=== PATIENT | male | born 1955 | race Caucasian/White ===

== ENCOUNTER 2017-12-08 10:38 | Emergency (ER) | payer OTHER ==
[2017-12-08 10:46] VITALS: BP 124/81; PULSE 83; TEMP 98.3; BMI 26.6
--- NOTE | 2017-12-08 10:57 | PDOC ---
Attending Attestation - Resident Resident Name: Trena Ugalde - ED Attending Attestation I have performed the following: I have examined & evaluated the patient, The case was reviewed & discussed with the resident, I agree w/resident's findings & plan, Exceptions are as noted - HPI HPI: 12/08/17 13:25 Left lower quadrant pain progressively worsening over the past 5 days. Started himself on Bactrim and Flagyl, this being day 3 of antibiotics, with worsening of his pain. One episode of diverticulitis in September [address] but no abscess, treated with outpatient antibiotics and resolved completely. Contacted his primary physician, who did not see the patient but started the antibiotic therapy. Mild nausea, no vomiting, normal bowel movements. Last bowel movement this morning. No fever/chills. No urinary tract symptoms. No hematemesis melena or bloody stool. - Physicial Exam PE: 12/08/17 13:27 Physical exam is normal except for significant left lower quadrant tenderness to moderate palpation with guarding in the suggestion of rebound. - Medical Decision Making 12/08/17 13:28 Assessment: Most likely a flareup of diverticulitis, seems to be worsening despite appropriate outpatient treatment with antibiotics. Plan: CBC and chemistries, repeat imaging to rule out perforation or abscess. Patient declines analgesics or antiemetics at present. 12/08/17 16:35 White blood count is normal. Remainder of CBC and chemistries also without significant abnormalities CT of the abdomen and pelvis reveals no evidence of acute disease. Specifically , no evidence of diverticulitis. A subacute episode however is possible, as well as viral gastroenteritis/colitis is possible etiology. Continue current antibiotic regimen and follow-up with GI specialist as soon as possible. If unable to get appointment with his GI specialist, he is referred to one of our staff for follow-up. Fully ambulatory and in no significant pain upon discharge with his to follow-up as directed. Specifically urged to return immediately if he develops fever, increased pain, protracted vomiting and inability to take in oral food or fluids.
[2017-12-08 12:54] LABS: URINE APPEARANCE Clear; URINE BILIRUBIN Negative (NEGATIVE); URINE COLOR Yellow; URINE GLUCOSE (UA) Negative (NEGATIVE); URINE KETONE Negative (NEGATIVE); URINE LEUK ESTERASE Negative (NEGATIVE); URINE NITRITE Negative (NEGATIVE); URINE PROTEIN Negative (NEGATIVE); URINE UROBILINOGEN 0.2 (0.2-1.0)
--- NOTE | 2017-12-08 13:02 | PDOC ---
History of Present Illness - General Chief Complaint: Pain Stated Complaint: LLQ ABD PAIN Time Seen by Provider: 12/08/17 11:50 - History of Present Illness Initial Comments: 62yo M with PMH of diverticulitis presenting with LLQ. This pain started about three or four days ago. The pain is presenting constantly at baseline, with intermittent severity, rated 8/10 at its worst. The pain is consistent with that of a previous episode of diverticulitis on 10/23/17 for which the patient came to this ED and was discharged with bactrim and flagyl. Patient called his primary care physician, Dr. Branham, who sent an e-prescription for the same medicines three days ago. Patient now on day three of antibiotics. Patient has also felt intermittent nausea, but has not vomited. Last bowel movement was this morning and was a normal formed brown stool without the presence of blood. No history of abdominal surgeries. Patient denies fever, chills, chest pain, or shortness of breath. Past History - Past Medical History Allergies/Adverse Reactions: Allergies Allergy/AdvReac Type Severity Reaction Status Date / Time Penicillins Allergy Verified 12/08/17 10:39 Home Medications: Ambulatory Orders Sulfamethoxazole/Trimethoprim [Bactrim DS -] 1 tab PO BID #20 tablet 10/23/17 metroNIDAZOLE [Flagyl -] 500 mg PO TID #30 tablet 10/23/17 COPD: No CHF: No GI Disorders: Yes (DIVERTICULITIS) - Suicide/Smoking/Psychosocial Hx Smoking History: Unknown if ever smoked Have you smoked in the past 12 months: No Number of Cigarettes Smoked Daily: 0 Information on smoking cessation initiated: No Hx Alcohol Use: No Drug/Substance Use Hx: No Substance Use Type: None Review of Systems - Review of Systems Comments:: Constitutional: no fever, no chills HEENT: no throat pain, no dysphagia Cardiovascular: no chest pain, no palpitations Respiratory: no cough, no shortness of breath Gastrointestinal: +abdominal pain, +nausea, no vomiting, no diarrhea, no constipation Genitourinary: no dysuria, no frequency Musculoskeletal: no myalgia, no arthralgia Skin: no rash, no itching Neurologic: no headache, no dizziness *Physical Exam - Vital Signs Last Vital Signs Temp Pulse Resp BP Pulse Ox 98.3 F 83 20 124/81 100 12/08/17 10:39 12/08/17 10:39 12/08/17 10:39 12/08/17 10:39 12/08/17 10:39 - Physical Exam Comments: General: Awake, alert, and fully oriented, in no acute distress Head: no signs of trauma Eyes: EOMI, sclera anicteric ENT: Moist mucus membranes Neck: Normal ROM, supple Lungs: Lungs clear, Normal breath sounds Cardio: Regular rhythm, S1 and S2 present Abdomen: Tender to palpation in LLQ. No guarding, no rebound, no masses Rectal: The skin is without erythema or induration. No external hemorrhoids, fissures, skin tags, warts, or discharge. Sphincter tone normal. There are no masses palpated on digital exam. Extremities: Normal range of motion, Distal pulses present SKIN: Warm, Dry, normal turgor Neurologic: Cranial nerves II through XII grossly intact. Normal speech ED Treatment Course - LABORATORY CBC & Chemistry Diagram: 12/08/17 13:00 12/08/17 13:00 - ADDITIONAL ORDERS Additional order review: Laboratory Results 12/08/17 12:44 Urine Color Yellow Urine Appearance Clear Urine pH 7.0 D Ur Specific Corbett 1.020 Urine Protein Negative Urine Glucose (UA) Negative Urine Ketones Negative Urine Blood Negative Urine Nitrite Negative Urine Bilirubin Negative Urine Urobilinogen 0.2 Ur Leukocyte Esterase Negative Medical Decision Making - Medical Decision Making 62yo M with PMH of diverticulitis presenting with LLQ. -DDX includes but not limited to diverticulitis, kidney stone, urinary tract infection, pyelonephritis, pancreatitis, colitis, gastroenteritis -Labs: no leukocytosis or anemia, lipase negative, FOBT, negative, UA negative - Patient deferred pain medication at this time -CT: without acute pathology, and even shows: in comparison to a prior CT study of 10/23/2017 note is made of interval resolution of acute uncomplicated sigmoid diverticulitis -Though WBC and CT normal, instructed patient to continue with prescription for bactrim and flagyl and follow-up with PCP -Referral to GI *DC/Admit/Observation/Transfer Diagnosis at time of Disposition: Abdominal pain - Discharge Dispostion Disposition: HOME Condition at time of disposition: Stable - Referrals Referrals: Nico Alexandre MD [Staff Physician] - Edi Larios MD [Non Staff, Medical] - - Patient Instructions Printed Discharge Instructions: DI for Abdominal Pain-Adult Additional Instructions: You came to the ED for abdominal pain. Continue the course of antibiotics (Trimethoprim-Sulfamethoxazole and Metronidazole) that your doctor already prescribed. Follow up with your primary care physician in 2-3 days. We have referred you to a gastrointestinal physician, Dr. Alexandre. Call and make an appointment at the number provided. RETURN if: you develo high fevers, severe pain, constipation, intractable vomiting, are unable to take your antibiotics, or develop any new or concerning symptoms. - Post Discharge Activity
[2017-12-08 13:27] LABS: BASO % 0.2 % (0-2.0); EOS % 4.1 % (0-4.5); HEMATOCRIT 41.1 % (35.4-49); HEMOGLOBIN 13.7 GM/dl (11.7-16.9); LYMPH % 21.5 % (8-40); MCH 31.3 pg (25.7-33.7); MCHC 33.4 g/dl (32.0-35.9); MEAN CELL VOLUME 93.5 fl (80-96); MEAN PLT VOLUME 8.4 fl (7.5-11.1); MONO % 17.3 % (3.8-10.2); NEUT % 56.9 % (42.8-82.8); PLATELET COUNT 191 K/MM3 (134-434); RBC 4.39 M/mm3 (4.00-5.60); WHITE BLOOD COUNT 6.4 K/mm3 (4.0-10.8)
[2017-12-08 13:37] LABS: ALBUMIN 4.1 g/dl (3.5-5.0); ALK PHOS 68 U/L (32-92); ANION GAP 7 MMOL/L (8-16); BILIRUBIN,TOTAL 0.6 mg/dl (0.2-1.0); BLOOD UREA NITROGEN 13 mg/dl (7-18); CALCIUM 9.3 mg/dl (8.4-10.2); CHLORIDE 103 mmol/L (98-107); CO2 24 mmol/L (22-28); CREATININE 1.1 mg/dl (0.6-1.3); GLUCOSE,RANDOM 81 mg/dl (74-106); POTASSIUM 4.2 mmol/L (3.5-5.1); SGOT/AST 25 U/L (10-42); SGPT/ALT 21 U/L (10-40); SODIUM 134 mmol/L (136-145); TOT PROT 7.6 g/dl (6.4-8.3)
[2017-12-08 14:16] LABS: LIPASE 141 U/L (73-393)
== END 2017-12-08 18:10 | disposition home or self-care (01) ==
LOC: FER 10:38
DX: R10.32 Left lower quadrant pain (principal)
CPT/HCPCS: 36415; 74177-TC; 80053; 81003; 82272; 83690; 85025; 87086; 99282-25